=== PATIENT | male | born 1960 | race Caucasian/White ===

== ENCOUNTER → 2019-12-22 | Outpatient (CLI) | payer OTHER ==
[~2019-12-22] MED LIST: OMNIPAQUE 350 MG/ML, 100ML BOTTLE ONE
== END | disposition home or self-care (01) ==
LOC: RAD 13:24
PROVIDERS: ATTEND Family Medicine
DX: R19.09 Other intra-abdominal and pelvic swelling, mass and lump (principal); K76.0 Fatty (change of) liver, not elsewhere classified; K70.31 Alcoholic cirrhosis of liver with ascites; R59.0 Localized enlarged lymph nodes; K25.4 Chronic or unspecified gastric ulcer with hemorrhage; F10.20 Alcohol dependence, uncomplicated; E11.9 Type 2 diabetes mellitus without complications; E78.5 Hyperlipidemia, unspecified; E83.110 Hereditary hemochromatosis; Z86.010 Personal history of colon polyps; I70.0 Atherosclerosis of aorta
CPT/HCPCS: 74177; Q9967

== ENCOUNTER → 2021-04-09 | Outpatient (CLI) | payer OTHER ==
[~2021-04-09] MED LIST changes: +B12 PO; -OMNIPAQUE 350 MG/ML, 100ML BOTTLE ONE
[2021-04-09 08:58] LABS: BASOPHILS % (AUTO) 2 % (0-1); EOSINOPHILS % (AUTO) 4 % (1-7); LYMPHOCYTES % (AUTO) 14 % (22-44); MEAN CORPUSCULAR HGB CONC 33.7 g/dL (33.2-36.2); MEAN PLATELET VOLUME 7.8 fL (7.4-10.4); MONOCYTES % (AUTO) 9 % (2-9); NEUTROPHILS % (AUTO) 73 % (42-75); PLATELET COUNT 236 x10^3/uL (130-400); RED CELL DISTRIBUTION WIDTH 13.9 % (9.4-14.8)
[2021-04-09 09:04] LABS: MICROSCOPIC AUTO
[2021-04-09 09:05] LABS: CALCIUM 8.8 mg/dL (8.5-10.1); CHLORIDE 108 mmol/L (98-107); CREATININE 1.21 mg/dL (0.7-1.3)
[2021-04-09 09:06] LABS: INTERNATIONAL NORMALIZED RATIO 0.91 (0.93-1.1); PROTHROMBIN TIME 9.8 Seconds (9.6-11.5)
[2021-04-09 09:15] LABS: ANION GAP 5 mmol/L (5-15)
== END | disposition home or self-care (01) ==
LOC: STAR 07:46
PROVIDERS: ATTEND Urology
DX: Z01.818 Encounter for other preprocedural examination (principal); N32.89 Other specified disorders of bladder; R00.1 Bradycardia, unspecified
CPT/HCPCS: 36415; 80048; 81001; 85025; 85610; 87086; 93005

== ENCOUNTER 2021-04-13 11:03 | Observation (INO) | payer OTHER ==
[~2021-04-13] VITALS: Ht 177.8 cm; Wt 88.7 kg
[2021-04-13] MEDS ORDERED: CHLORHEXIDINE 15 ML UDC PO ONE (11:30)
[2021-04-13] MEDS ORDERED: LACTATED RINGERS 1,000 ML IV SCH (11:30)
[2021-04-13] MEDS ORDERED: OPIUM/BELLADONNA SUPP.RECT 16.2-30 MG ONE (12:35)
[2021-04-13] MEDS ORDERED: FENTANYL PF 250 MCG/5ML ONE (12:39)
[2021-04-13] MEDS ORDERED: MIDAZOLAM 1 MG/ML, 2ML ONE (12:39)
[2021-04-13] MEDS ORDERED: PROPOFOL 10 MG/ML, 20ML ONE (12:43)
[2021-04-13] MEDS ORDERED: OMNIPAQUE 350 MG/ML, 50 ML BOTTLE ONE (12:45)
[2021-04-13] MEDS ORDERED: SUCCINYLCHOLINE 20 MG/ML, 10ML ONE (12:55)
[2021-04-13] MEDS ORDERED: ROCURONIUM 10 MG/ML,10ML ONE (12:55)
[2021-04-13] MEDS ORDERED: GEMCITABINE HCL 1,000 MG in SODIUM CHLORIDE 0.9% 23.7 ML IS ONE (13:00)
[2021-04-13] MEDS ORDERED: DEXAMETHASONE 4 MG/ML, 1ML ONE ×2 (13:04→13:39)
[2021-04-13] MEDS ORDERED: FLUORESCEIN SODIUM 500 MG/5 ML ONE (13:15)
[2021-04-13] MEDS ORDERED: ONDANSETRON 2MG/ML, 2ML ONE ×2 (13:39)
[2021-04-13] MEDS ORDERED: CEFAZOLIN 1,000 MG ONE ×2 (13:39)
[2021-04-13] MEDS ORDERED: FENTANYL PF 100 MCG/2ML ONE (14:05)
[2021-04-13] MEDS: FENTANYL PF 100 MCG/2ML IV PRN ×2 (14:10→14:32)
[2021-04-13] MEDS ORDERED: DIAZEPAM 5 MG/ML, 2ML ONE (14:15)
[2021-04-13] MEDS: DIAZEPAM 5 MG/ML, 2ML IVPush PRN ×2 (14:17→14:27)
[2021-04-13] MEDS ORDERED: OXYcodone 5 MG/5 ML ORAL.SOL UDC PO PRN (14:30)
[2021-04-13] MEDS ORDERED: EPHEDRINE 50 MG/ML, 1ML IVPush PRN (14:30)
[2021-04-13] MEDS ORDERED: DIPHENHYDRAMINE 50 MG/ML, 1ML IVPush PRN ×2 (14:30)
[2021-04-13] MEDS ORDERED: MIDAZOLAM 1 MG/ML, 2ML IV PRN (14:30)
[2021-04-13] MEDS ORDERED: ALBUTEROL SULFATE 2.5 MG/3 ML NPPB PRN (14:30)
[2021-04-13] MEDS ORDERED: ACETAMINOPHEN 325 MG TABLET PO PRN ×2 (14:30→18:00)
[2021-04-13] MEDS ORDERED: HYDROmorphone 1 MG/ML, 1ML INJ IVPush PRN (14:30)
[2021-04-13] MEDS ORDERED: LORazepam 2 MG/ML, 1ML IVPush PRN (14:30)
[2021-04-13] MEDS ORDERED: LABETALOL 5MG/ML, 20ML IV PRN (14:30)
[2021-04-13] MEDS ORDERED: PROMETHAZINE 12.5 MG SUPP PR PRN (14:30)
[2021-04-13] MEDS ORDERED: PROMETHAZINE 25 MG/ML, 1ML IVPush PRN (14:30)
[2021-04-13] MEDS ORDERED: MEPERIDINE/PF 25MG/0.5ML IVPush PRN (14:30)
[2021-04-13] MEDS ORDERED: ONDANSETRON 2MG/ML, 2ML IVPush PRN ×2 (14:30→18:00)
[2021-04-13] MEDS ORDERED: hydrALAzine 20 MG/ML, 1ML ONE (14:36)
[2021-04-13] MEDS: hydrALAzine 20 MG/ML, 1ML IV PRN ×2 (14:39→15:40)
[2021-04-13] MEDS ORDERED: LISINOPRIL 5 MG TABLET PO ONE (16:30)
[2021-04-13] MEDS ORDERED: morphine SULFATE 10 MG/ML, 1ML IVPush PRN (18:00)
[2021-04-13] MEDS ORDERED: ENALAPRILAT 1.25 MG/ML, 2ML IVPush PRN (18:00)
[2021-04-13] MEDS ORDERED: ENALAPRILAT 1.25 MG/ML, 1ML ONE (18:25)
[2021-04-13] MEDS ORDERED: ONDANSETRON 2MG/ML, 2ML IV PRN (18:30)
[2021-04-13] MEDS ORDERED: morphine SULFATE 10 MG/ML, 1ML IV PRN (18:30)
[2021-04-13] MEDS: SODIUM CHLORIDE 0.9% 1,000 ML IV SCH ×2 (18:30→23:11)
[2021-04-13 18:52] LABS: BASOPHILS % (AUTO) 0 % (0-1); EOSINOPHILS % (AUTO) 0 % (1-7); LYMPHOCYTES % (AUTO) 4 % (22-44); MEAN CORPUSCULAR HGB CONC 32.5 g/dL (33.2-36.2); MEAN PLATELET VOLUME 7.8 fL (7.4-10.4); MONOCYTES % (AUTO) 1 % (2-9); NEUTROPHILS % (AUTO) 96 % (42-75); PLATELET COUNT 249 x10^3/uL (130-400); RED BLOOD COUNT 4.66 x10^6/uL (4.38-5.82); RED CELL DISTRIBUTION WIDTH 13.9 % (9.4-14.8)
[2021-04-13 20:22] VITALS: BP 174/82
[2021-04-13] MEDS: CEFAZOLIN PMX 1GM/50ML 50 ML IV SCH (23:10)
[2021-04-14 01:28] VITALS: BP 134/75
[2021-04-14] MEDS ORDERED: OPIUM/BELLADONNA SUPP.RECT 16.2-30 MG PR PRN (02:20)
[2021-04-14 04:00] VITALS: BP 157/87
[2021-04-14 05:21] LABS: ALANINE AMINOTRANSFERASE 20 U/L (12-78); ALBUMIN 3.5 g/dL (3.4-5.0); ANION GAP 5 mmol/L (5-15); CALCIUM 8.4 mg/dL (8.5-10.1); CHLORIDE 111 mmol/L (98-107)
[2021-04-14 05:24] LABS: ALKALINE PHOSPHATASE 112 U/L (45-117); BILIRUBIN,TOTAL 0.5 mg/dL (0.2-1.0); CREATININE 1.13 mg/dL (0.7-1.3); TOTAL PROTEIN 7.3 g/dL (6.4-8.2)
[2021-04-14] MEDS: CEFAZOLIN PMX 1GM/50ML 50 ML IV SCH (06:20)
[2021-04-14 08:36] VITALS: BP 143/76
[2021-04-14] MEDS ORDERED: LISINOPRIL 10 MG TABLET PO SCH (09:00)
[2021-04-14 12:35] VITALS: BP 147/81
== END 2021-04-14 12:50 | disposition home or self-care (01) ==
LOC: OR 11:03 → EDIP 17:30 → INTOOBSV 17:30 → 4NE 17:52
PROVIDERS: ADMIT Urology; ATTEND Hospitalist
DX: D49.4 Neoplasm of unspecified behavior of bladder (principal); I10 Essential (primary) hypertension; Z85.048 Personal history of other malignant neoplasm of rectum, rectosigmoid junction, and anus; Z87.891 Personal history of nicotine dependence; Z79.899 Other long term (current) drug therapy
CPT/HCPCS: 36415; 51720; 52235; 52332; 74420; 80053; 83735; 84100; 85014; 85018; 85025; 88305; 96361; 96365; 96366; C1758; C1769; C2617; G0378; J0330; J0360; J0690; J1100; J2250; J2405; J2704; J3010; J3360; J7030; J7120; J9201; Q9967